=== PATIENT | male | born 1970 | race Caucasian/White ===

== ENCOUNTER 2018-01-17 13:09 | Inpatient (IN) | payer MEDICARE, MEDICAID ==
[~2018-01-17] VITALS: Ht 172.7 cm; Wt 104.5 kg
[~2018-01-17 13:09] MED LIST: ALPR0.25 PO; BENZ1TAB PO; CABE0.5T PO; FENO160T PO; HYDR12.56 PO; LISI-515 PO; LITH300C2 PO; LITH300T3 PO; LORA-650 PO; PANT20TA2 PO; TEST200I13 IM; THIO5CAP PO; VITA10002 PO; VITA100020 IM; VITA100022 PO
[2018-01-17 13:18] VITALS: BP 116/66; PULSE 103; RESP 22; TEMP 98.8; O2SAT 88
[2018-01-17 14:00] VITALS: PULSE 97; RESP 31; O2SAT 92
[2018-01-17 14:14] LABS: AUTOMATED NEUTROPHIL # 13.4 TH/MM3 (1.8-7.7); BASOPHIL # 0.1 TH/MM3 (0-0.2); BASOPHIL % 0.3 % (0.0-2.0); EOSINOPHIL # 0.4 TH/MM3 (0-0.4); EOSINOPHIL % 2.6 % (0.0-4.0); HEMATOCRIT 44.5 % (39.0-51.0); LYMPH % 9.4 % (9.0-44.0); LYMPHOCYTE # 1.6 TH/MM3 (1.0-4.8); MEAN CELL VOLUME 83.1 FL (80.0-100.0); MEAN CORPUSCULAR HGB CONC 33.7 % (32.0-36.0); MEAN PLATELET VOLUME 9.1 FL (7.0-11.0); MONO % 6.7 % (0.0-8.0); MONOCYTE # 1.1 TH/MM3 (0-0.9); PLATELET COUNT 347 TH/MM3 (150-450); RED BLOOD COUNT 5.35 MIL/MM3 (4.50-5.90); RED CELL DISTRIBUTION WIDTH 14.6 % (11.6-17.2); WHITE BLOOD COUNT 16.6 TH/MM3 (4.0-11.0)
[2018-01-17 14:22] LABS: INTERNATIONAL NORMALIZED RATIO 1.1 RATIO; PROTHROMBIN TIME - PATIENT 11.1 SEC (9.8-11.6)
--- NOTE | 2018-01-17 14:28 | RADRPT ---
EXAM DATE/TIME: 01/17/2018 13:52 [place] COMPARISON: CHEST SINGLE AP, March 15, 2016, 12:01. INDICATIONS : Shortness of breath. MEDICAL HISTORY : None. SURGICAL HISTORY : None. ENCOUNTER: Initial ACUITY: 1 day PAIN SCORE: 0/10 LOCATION: Bilateral chest FINDINGS: A single view of the chest demonstrates the lungs to be symmetrically hypoinflated with bibasilar ate lectatic changes. No confluent infiltrate. Accounting for degree of inspiration, heart size is normal . Osseous structures are intact. CONCLUSION: 1. Hypoinflation with bibasilar atelectatic changes. 2. No confluent infiltrate Maico Aldridge MD on January 17, 2018 at 14:24 Board Certified Radiologist. This report was verified electronically.
[2018-01-17 14:32] LABS: ALBUMIN 3.5 GM/DL (3.4-5.0); ALT (GPT) 19 U/L (12-78); AST (GOT) 32 U/L (15-37); BICARBONATE 31.7 MEQ/L (21.0-32.0); BLOOD UREA NITROGEN 33 MG/DL (7-18); CALCIUM 9.6 MG/DL (8.5-10.1); CHLORIDE 96 MEQ/L (98-107); CREATININE 1.84 MG/DL (0.60-1.30); GLOMERULAR FILTRATION RATE 39 ML/MIN (>89); GLUCOSE,RANDOM 99 MG/DL (74-106); MAGNESIUM 2.5 MG/DL (1.5-2.5); PHOSPHORUS 3.4 MG/DL (2.5-4.9); SODIUM (NA) 136 MEQ/L (136-145)
[2018-01-17 14:37] LABS: ALKALINE PHOSPHATASE 59 U/L (45-117); TOTAL BILIRUBIN ADULT 0.5 MG/DL (0.2-1.0); TOTAL PROTEIN 8.1 GM/DL (6.4-8.2); TROPONIN I 0.03 NG/ML (0.02-0.05)
[2018-01-17] MEDS ORDERED: SODIUM CHLOR 0.9% 1000 ML INJ 1,000 ML IV ONE ×2 (14:45→19:15)
[2018-01-17 15:00] VITALS: BP 133/74; PULSE 97; RESP 24; O2SAT 95
[2018-01-17] MEDS ORDERED: cefTRIAXone INJ 2,000 MG in SODIUM CHLORIDE 0.9% INJ 100 ML IV STA (15:05)
[2018-01-17] MEDS ORDERED: AZITHROMYCIN INJ 500 MG in SODIUM CHLOR 0.9% 250 ML INJ 250 ML IV STA (15:05)
[2018-01-17] MEDS ORDERED: RESP: ALBUTEROL 2.5 MG/IPRATROPIUM 0.5 MG NEB (SCH) NEB ONE (15:15)
[2018-01-17 15:27] LABS: BACTERIA, URINE MOD /hpf; BILIRUBIN, URINE NEG (NEG); BLOOD, URINE NEG (NEG); GLUCOSE,URINE NEG (NEG); HYALINE CAST, URINE 5 /lpf (RARE); KETONE, URINE NEG (NEG); MUCUS URINE FEW /lpf (OCC); NITRITE,URINE NEG (NEG); PH, URINE 5.5 (5.0-8.5); URINE COLOR YELLOW (YELLW/STRAW); URINE LEUKOCYTE ESTERASE SMALL (NEG); WHITE BLOOD CELL CLUMPS RARE
[2018-01-17 15:37] LABS: BANDS 3 % (0-6); LYMPHOCYTES 9 % (9-44); METAMYELOCYTES 2 % (0-1); MONOCYTES 6 % (0-8); NEUTROPHIL # MANUAL DIFF 13.4 TH/MM3 (1.8-7.7); POLYS (SEG NEUTROPHILS) 76 % (16-70)
[2018-01-17 15:38] LABS: STOMATOCYTES 1+ (NORMAL)
[2018-01-17 15:39] LABS: TOXIC VACUOLATION PRESENT (NONE SEEN)
[2018-01-17 16:00] VITALS: BP 127/64; PULSE 101; RESP 28; O2SAT 96
--- NOTE | 2018-01-17 17:11 | HHI.HP ---
[facility] Service Family Medicine Primary Care Physician Derian Jordan MD Admission Diagnosis Diagnoses: International Travel<30 Days: No Contact w/Intl Traveler<30days: No Known Affected Area: No History of Present Illness Mr. Garcia is a 47-year-old patient of Dr. Jordan with PMH of schizoaffective disorder, sleep apnea, HTN who presents for evaluation of cough and fever. Upon presentation to the emergency department, patient was noted to have pulse ox of 88% on room air, which improved with supplemental oxygen. Patient is accompanied by mother who supplemented the history. Patient reports hat he has been having a cough productive of mucus which started last Tuesday. This worsened Tuesday night with cough more productive of thick yellow -green sputum; he has since had T of 101F at night associated with breaking into sweating at night, seems cyclical. No foreign travel. He denied any prolonged exposure to healthcare facilities. Patient has not been having associated head/sinus pressure but has had sore throat. He denies any COPD, asthma, or underlying lung disease. Sick contact of dad who recently was sick with similar symptoms. Patient was seen by Dr. Murphy yesterday on 01/16/18 who prescribed Bromfed and Azithromycin. Patient denied any improvement after taking these medications. Was gasping for air upon presentation to ED. Patient also has had bilateral eye discharge for the past 2 days. His mother reports that his eyes are crusted shut in the morning. Patient currently denies chest pain, shortness of breath. (Apolinar Song MD R2) Review of Systems Other + fever or chills No polyuria, polydipsia Denies vision changes, eye pain, + eye discharge BL, denies hearing changes, rhinorrhea, +post-nasal drip, + sore throat + productive cough No chest pain, palpitations, shortness of breath No abdominal pain Denies constipation, + diarrhea, denies nausea, vomiting, + black or brown stools, denies bloody stools; patient refused rectal exam No dysuria, hematuria Denies muscle/joint pain, + weakness, denies headache No rashes, itching (Apolinar Song MD R2) Past Family Social History Past Medical History Manic Depression Schizophrenia History of cutting Obesity Patient has been on disability for several years Sleep apnea on CPAP (evaluated by ENT will get an adenoidectomy next month) Hypo-testosterone PHospitalization: 2006, cut wrists while on abilify. Health maintenance: updated 04/01/15 Colonoscopy at age 48 Flu shot: Aspirin flu season Tdap booster: Declined due to cost Past Surgical History left forearm broken pin placement Reported Medications Reported Meds & Active Scripts Active Fenofibrate 160 Mg Tab 160 Mg PO DAILY Allergy Relief (Loratadine) 10 Mg Tab 10 Mg PO DAILY Pantoprazole (Pantoprazole Sodium) 20 Mg Tab 20 Mg PO qhs Omeprazole 20 mg po qd Lisinopril 20 Mg Tab 20 Mg PO DAILY Alprazolam 0.25 Mg Tab 0.25 Mg PO DAILY PRN Vitamin B-12 ER (Cyanocobalamin) 1,000 Mcg Tab 1,000 Mcg PO MONTHLY Hydrochlorothiazide 12.5 Mg Tab 12.5 Mg PO DAILY Vitamin B-12 ER (Cyanocobalamin) 1,000 Mcg Tab 1,000 Mcg PO DAILY Reported Testosterone Enanthate Inj (Testosterone Enanthate) 200 Mg/Ml Inj 100 Mg IM Q15D Cabergoline 0.5 Mg Tab 0.25 Mg PO 3XWEEK [place] Carbonate 300 Mg Tab 300 Mg PO DAILY Vitamin B-12 Extended Rel (Miscellaneous Medication) 1,000 Mcg Inj 1,000 Mcg IM MONTHLY Thiothixene 5 Mg Cap 10 Mg PO BID Benztropine Mesylate 2 Mg Tab 2 Mg PO TID Eskalith ([place] Carbonate) 300 Mg Cap 600 Mg PO BID (Apolinar Song MD R2) Allergies: Coded Allergies: No Known Allergies (Verified Adverse Reaction, Unknown, 10/24/17) Active Ordered Medications Current Medications Medications (Trade) Dose Ordered Sig/Saloni Route Start Time Stop Time Status Last Admin Sodium Chloride 1,000 ml @ 145 mls/hr Q6H54M IV 01/17/18 17:39 (NS Flush) 2 ml UNSCH PRN IV FLUSH 01/17/18 17:45 (NS Flush) 2 ml BID IV FLUSH 01/17/18 21:00 Ceftriaxone Sodium 2000 mg/ Sodium Chloride 100 ml @ 200 mls/hr Q24H IV 01/18/18 16:00 Azithromycin 500 mg/Sodium Chloride 250 ml @ 250 mls/hr Q24H IV 01/18/18 17:00 (Tylenol) 650 mg Q4H PRN PO 01/17/18 17:45 (Zofran Inj) 4 mg Q6H PRN IV PUSH 01/17/18 17:45 (Robitussin Ac 200-20 Mg/10 ml Liq) 10 ml Q4H PRN PO 01/17/18 17:45 (Lovenox Inj) 40 mg Q24H SQ 01/17/18 20:00 (Xanax) 0.25 mg DAILY PRN PO 01/17/18 18:00 (Cogentin) 2 mg TID PO 01/17/18 19:00 (Vitamin B12) 1,000 mcg DAILY PO 01/18/18 09:00 (Microzide) 12.5 mg DAILY PO 01/17/18 19:00 (Prinivil) 20 mg DAILY PO 01/17/18 19:00 (Claritin) 10 mg DAILY PO 01/17/18 19:00 (Protonix) 20 mg DAILY PO 01/17/18 19:00 (Tricor) 145 mg DAILY PO 01/17/18 19:00 Family History Mom: Depression/Anxiety, GERD Dad: CAD, HTN, Diverticulitis Social History He is a patient at [facility] [place] no tobacco, no alcohol, no drugs (Apolinar Song MD R2) Physical Exam Vital Signs Vital Signs Date Time Temp Pulse Resp B/P (MAP) Pulse Ox O2 Delivery O2 Flow Rate FiO2 01/17/18 16:00 101 28 127/64 (85) 96 Nasal Cannula 2.00 01/17/18 15:00 97 24 133/74 (93) 95 Nasal Cannula 2.00 01/17/18 14:00 97 31 92 Nasal Cannula 2.00 01/17/18 13:38 Nasal Cannula 2.00 01/17/18 13:18 98.8 103 22 116/66 (83) 88 Physical Exam GENERAL: Patient is lying in bed with oxygen via nasal cannula in place, in no acute distress. SKIN: Warm and dry, no rashes appreciated EYES: Some bilateral conjunctival injection R>L; mild discharge from right eye Nose: Bilateral turbinate erythema HENT: Head: Normocephalic. Mouth: Dry mucous membranes. Posterior oropharyngeal erythema. NECK: + Mild cervical lymphadenopathy, but no thyromegaly CARDIOVASCULAR: Regular rate and rhythm without murmurs. RESPIRATORY: Mildly tachypneic. Coughing during exam. Left lung base with some mild rales. Lungs without wheezing. Dullness to percussion at the bases bilaterally. GASTROINTESTINAL: Abdomen soft, nondistended, nontender. Bowel sounds normal. Patient refused rectal exam. MUSCULOSKELETAL: No lower extremity swelling. No calf tenderness bilaterally. NEURO/PSYCH: Awake, alert, and oriented. Cranial nerves grossly normal. Grossly normal motor and sensory function. Laboratory Laboratory Tests Test 01/17/18 13:45 01/17/18 13:55 01/17/18 14:30 White Blood Count 16.6 Red Blood Count 5.35 Hemoglobin 15.0 Hematocrit 44.5 Mean Corpuscular Volume 83.1 Mean Corpuscular Hemoglobin 28.0 Mean Corpuscular Hemoglobin Concent 33.7 Red Cell Distribution Width 14.6 Platelet Count 347 Mean Platelet Volume 9.1 Neutrophils (%) (Auto) 81.0 Lymphocytes (%) (Auto) 9.4 Monocytes (%) (Auto) 6.7 Eosinophils (%) (Auto) 2.6 Basophils (%) (Auto) 0.3 Neutrophils # (Auto) 13.4 Lymphocytes # (Auto) 1.6 Monocytes # (Auto) 1.1 Eosinophils # (Auto) 0.4 Basophils # (Auto) 0.1 CBC Comment AUTO DIFF Differential Total Cells Counted 100 Neutrophils % (Manual) 76 Band Neutrophils % 3 Lymphocytes % 9 Monocytes % 6 Eosinophils % 4 Neutrophils # (Manual) 13.4 Metamyelocytes 2 Differential Comment FINAL DIFF MANUAL Toxic Vacuolation PRESENT Platelet Estimate NORMAL Platelet Morphology Comment NORMAL Stomatocytes 1+ Prothrombin Time 11.1 Prothromb Time International Ratio 1.1 Activated Partial Thromboplast Time 30.8 Blood Urea Nitrogen 33 Creatinine 1.84 Random Glucose 99 Total Protein 8.1 Albumin 3.5 Calcium Level 9.6 Phosphorus Level 3.4 Magnesium Level 2.5 Alkaline Phosphatase 59 Aspartate Amino Transf (AST/SGOT) 32 Alanine Aminotransferase (ALT/SGPT) 19 Total Bilirubin 0.5 Sodium Level 136 Potassium Level 3.5 Chloride Level 96 Carbon Dioxide Level 31.7 Anion Gap 8 Estimat Glomerular Filtration Rate 39 Total Creatine Kinase 517 Creatine Kinase MB 2.4 Creatine Kinase MB % 0.5 Troponin I 0.03 Lactic Acid Level 0.8 Urine Color YELLOW Urine Turbidity CLEAR Urine pH 5.5 Urine Specific [place] 1.012 Urine Protein TRACE Urine Glucose (UA) NEG Urine Ketones NEG Urine Occult Blood NEG Urine Nitrite NEG Urine Bilirubin NEG Urine Urobilinogen LESS THAN 2.0 Urine Leukocyte Esterase SMALL Urine RBC LESS THAN 1 Urine WBC 12 Urine WBC Clumps RARE Urine Bacteria MOD Urine Hyaline Casts 5 Urine Mucus FEW Microscopic Urinalysis Comment CATH-CULTURE IND Date/Time Source Procedure Growth Status 01/17/18 13:54 Blood Peripheral Aerobic Blood Culture Pending Received 01/17/18 13:54 Blood Peripheral Anaerobic Blood Culture Pending Received 01/17/18 13:44 Nasal Aspirate Influenza Types A,B Antigen (HIMANSHU) - Final NEGATIVE FOR FLU A AND B ANTIGEN.... Complete 01/17/18 14:30 Urine Catheterized Urine Urine Culture Pending Received (Apolinar Song MD R2) Result Diagram: 01/17/18 1345 01/17/18 1345 Imaging Last Impressions Chest X-Ray 01/17/18 1333 Signed Impressions: Service Date/Time: Wednesday, January 17, 2018 13:52 - CONCLUSION: 1. Hypoinflation with bibasilar atelectatic changes. 2. No confluent infiltrate Maico Aldridge MD Course In the emergency department, patient had oxygen administration, chest x-ray, blood culture, influenza A/B antigen, UA, troponin, CK-MB, phosphorus, magnesium , lactic acid, APTT, PT/INR, CMP, CBC, EKG, sodium chloride IV bolus, DuoNeb, azithromycin IV, ceftriaxone IV, urine culture, admission order. (Apolinar Song MD R2) Caprini VTE Risk Assessment Caprini VTE Risk Assessment: No/Low Risk (score <= 1) Caprini Risk Assessment Model Point Value = 1 Point Value = 2 Point Value = 3 Point Value = 5 Age 41-60 Minor surgery BMI > 25 kg/m2 Swollen legs Varicose veins or History of unexplained or recurrent spontaneous Oral contraceptives or hormone replacement Sepsis (< 1 month) Serious lung disease, including pneumonia (< 1 month) Abnormal pulmonary function Acute myocardial infarction Congestive heart failure (< 1 month) History of inflammatory bowel disease Medical patient at bed rest Age 61-74 Arthroscopic surgery Major open surgery (> 45 min) Laparoscopic surgery (> 45 min) Malignancy Confined to bed (> 72 hours) Immobilizing plaster cast Central venous access Age >= 75 History of VTE Family history of VTE Factor V Leiden Prothrombin [id number] Lupus anticoagulant Anticardiolipin antibodies Elevated serum homocysteine Heparin-induced thrombocytopenia Other congenital or acquired thrombophilia Stroke (< 1 month) Elective arthroplasty Hip, pelvis, or leg fracture Acute spinal cord injury (< 1 month) Prophylaxis Regimen Total Risk Factor Score Risk Level Prophylaxis Regimen 0-1 Low Early ambulation 2 Moderate Order ONE of the following: *Sequential Compression Device (SCD) *Heparin 5000 units SQ BID 3-4 Higher Order ONE of the following medications: *Heparin 5000 units SQ TID *Enoxaparin/Lovenox 40 mg SQ daily (WT < 150 kg, CrCl > 30 mL/min) *Enoxaparin/Lovenox 30 mg SQ daily (WT < 150 kg, CrCl > 10-29 mL/min) *Enoxaparin/Lovenox 30 mg SQ BID (WT < 150 kg, CrCl > 30 mL/min) AND/OR *Sequential Compression Device (SCD) 5 or more Highest Order ONE of the following medications: *Heparin 5000 units SQ TID (Preferred with Epidurals) *Enoxaparin/Lovenox 40 mg SQ daily (WT < 150 kg, CrCl > 30 mL/min) *Enoxaparin/Lovenox 30 mg SQ daily (WT < 150 kg, CrCl > 10-29 mL/min) *Enoxaparin/Lovenox 30 mg SQ BID (WT < 150 kg, CrCl > 30 mL/min) AND *Sequential Compression Device (SCD) (Apolinar Song MD R2) Assessment and Plan Assessment and Plan Mr. Garcia is a 47-year-old patient of Dr. Jordan with PMH of schizoaffective disorder, sleep apnea, HTN who presents for evaluation of cough and fever. Upon presentation to the emergency department, patient was noted to have pulse ox of 88% on room air, which improved with supplemental oxygen. Code Status Full code (Apolinar Song MD R2) Attending Attestation Patient seen and examined. Discussed with Dr. Jesus. Agree with physical findings , assessment and plan as documented. (Prevatte,Georgi Thoams Jr., MD) Problem List: (1) Hypoxia ICD Codes: R09.02 - Hypoxemia Status: Acute Plan: Given patient's leukocytosis of 16.6 with neutrophilia, poor chest x-ray , left lower lung field rales, will treat for likely bacterial pneumonia superimposed on viral URI. -Placed in observation -Regular basic diet -Supplemental oxygen as needed to maintain oxygen saturation over 92% -Trend CBC -Azithromycin 500 mg IV every 24 hours -Ceftriaxone 2 g IV every 24 hours -Duo nebs as needed -Guaifenesin-codeine 10 mL p.o. every 4 hours as needed for cough -Zofran 4 mg IV every 6 hours as needed for nausea -Follow-up blood cultures, urine culture -Follow-up group A rapid strep screen, influenza A/B antigen, Legionella urinary antigen, pneumococcal urinary antigen, sputum culture and Gram stain -Monitor intake and output -Monitor vital signs -Repeat chest x-ray (2) STEVE (acute kidney injury) ICD Codes: N17.9 - Acute kidney failure, unspecified Status: Acute Plan: Likely secondary to dehydration in the context of recent infection. Patient already received 1 L bolus of normal saline in the emergency department. Still appears dry on exam. -Repeat another liter bolus normal saline -Maintenance IV fluids of normal saline IV at 145 mm's per hour -Trend BMP (3) Conjunctivitis ICD Codes: H10.9 - Unspecified conjunctivitis Status: Acute Plan: -Erythromycin ointment to right eye every 6 hours for 5-7 days (4) Sleep apnea ICD Codes: G47.30 - Sleep apnea Status: Chronic Plan: -CPAP to sleep at night (5) Schizoaffective disorder, unspecified ICD Codes: F25.9 - Schizoaffective disorder, unspecified Status: Chronic Plan: -Continue lithium 300 mg p.o. 3 times daily -Continue thiothixene 10 mg p.o. twice daily -Continue benztropine 2 mg p.o. 3 times daily (6) Hypertension ICD Codes: I10 - Essential (primary) hypertension Status: Chronic Plan: -Continue lisinopril 20 mg p.o. daily -Continue hydrochlorothiazide 12.5 mg p.o. daily (7) GERD Status: Chronic Plan: -Continue pantoprazole 20 mg p.o. daily -Patient also takes omeprazole 20 mg p.o. daily in the morning, but this medication is held (8) Hypertriglyceridemia ICD Codes: E78.1 - Hypertriglyceridemia Status: Chronic Plan: -Continue fenofibrate 130 mg p.o. daily (9) Anxiety ICD Codes: F41.9 - Anxiety Status: Chronic Plan: -Continue Xanax 0.25 mg p.o. daily as needed for anxiety (10) Hyperprolactinemia ICD Codes: E22.1 - Hyperprolactinemia Status: Chronic Plan: -Continue cabergoline 0.5 mg every Tuesday (11) No contraindication to deep vein thrombosis (DVT) prophylaxis ICD Codes: Z78.9 - Other specified health status Status: Acute Plan: -Lovenox 40 mg subcutaneously every 24 hours (12) Nutrition, metabolism, and development symptoms ICD Codes: R63.8 - Other symptoms and signs concerning food and fluid intake Status: Chronic Plan: Fluids: As above Electrolytes: Monitor and replete as necessary Nutrition: Regular basic diet (Apolinar Song MD R2) Apolinar Song MD R2 Jan 17, 2018 17:10 Georgi García Jr., MD Jan 18, 2018 10:51
--- NOTE | 2018-01-17 17:34 | PD ---
HPI Chief Complaint: Respiratory Symptoms Time Seen by Provider: 13:33 Travel History International Travel<30 days: No Contact w/Intl Traveler<30days: No Traveled to known affect area: No History of Present Illness HPI 47-year-old male presents with his parents with note of cough, congestion, fever over the past couple of days. She states he has gotten short of breath. He has history of sleep apnea and it gets worse at night. Mother mainly helps supplement history this patient is a poor historian. This limits history. PFSH Past Medical History Hx Anticoagulant Therapy: No Arthritis: No Asthma: No Autoimmune Disease: No Blood Disorders: No Bipolar Disorder: Yes Anxiety: Yes Depression: Yes Heart Rhythm Problems: No Cancer: No Cardiovascular Problems: Yes (HTN) High Cholesterol: No Chemotherapy: No Chest Pain: No Congestive Heart Failure: No COPD: No Cerebrovascular Accident: No Diabetes: No Diminished Hearing: No GERD: No Glaucoma: No Headaches: No Hepatitis: No Hiatal Hernia: No Hypertension: Yes Kidney Stones: No Musculoskeletal: No Neurologic: No Psychiatric: Yes Reproductive: No Respiratory: No Myocardial Infarction: No Radiation Therapy: No Renal Failure: No Schizophrenia: Yes Seizures: No Sleep Apnea: No Thyroid Disease: No Ulcer: No Tetanus Vaccination: > 5 Years Influenza Vaccination: No Past Surgical History Pacemaker: No Other Surgery: No Social History Alcohol Use: No Tobacco Use: No Substance Use: No Allergies-Medications (Allergen,Severity, Reaction): Coded Allergies: No Known Allergies (Verified Adverse Reaction, Unknown, 10/24/17) Reported Meds & Prescriptions Reported Meds & Active Scripts Active Fenofibrate 160 Mg Tab 160 Mg PO DAILY Allergy Relief (Loratadine) 10 Mg Tab 10 Mg PO DAILY Pantoprazole (Pantoprazole Sodium) 20 Mg Tab 20 Mg PO DAILY Lisinopril 20 Mg Tab 20 Mg PO DAILY Alprazolam 0.25 Mg Tab 0.25 Mg PO DAILY PRN Vitamin B-12 ER (Cyanocobalamin) 1,000 Mcg Tab 1,000 Mcg PO MONTHLY Hydrochlorothiazide 12.5 Mg Tab 12.5 Mg PO DAILY Vitamin B-12 ER (Cyanocobalamin) 1,000 Mcg Tab 1,000 Mcg PO DAILY Reported Testosterone Enanthate Inj (Testosterone Enanthate) 200 Mg/Ml Inj 100 Mg IM Q15D Cabergoline 0.5 Mg Tab 0.25 Mg PO 2XWEEK [place] Carbonate 300 Mg Tab 300 Mg PO DAILY Vitamin B-12 Extended Rel (Miscellaneous Medication) 1,000 Mcg Inj 1,000 Mcg IM MONTHLY Thiothixene 5 Mg Cap 20 Mg PO TID NEB Benztropine Mesylate 2 Mg Tab 2 Mg PO TID Eskalith ([place] Carbonate) 300 Mg Cap 600 Mg PO BID Review of Systems ROS Limitations: Poor Historian Physical Exam Exam Limitations: Poor Historian Narrative GENERAL: 47-year-old male in no apparent distress SKIN: Focused skin assessment warm/dry. HEAD: Atraumatic. Normocephalic. EYES: Pupils equal and round. No scleral icterus. No injection or drainage. ENT: No nasal bleeding or discharge. Mucous membranes pink and moist. Rhinorrhea noted NECK: Trachea midline. No meningeal signs CARDIOVASCULAR: Regular rate and rhythm. No murmur appreciated. RESPIRATORY: No accessory muscle use. Clear to auscultation. Breath sounds equal bilaterally. GASTROINTESTINAL: Abdomen soft, non-tender, nondistended. MUSCULOSKELETAL: No obvious deformities. No clubbing. No cyanosis. NEUROLOGICAL: Awake, moves all extremities. Normal speech. Data Data Last Documented VS Vital Signs Date Time Temp Pulse Resp B/P (MAP) Pulse Ox O2 Delivery O2 Flow Rate FiO2 01/17/18 16:00 101 28 127/64 (85) 96 Nasal Cannula 2.00 01/17/18 13:18 98.8 Orders Orders Electrocardiogram (01/17/18 13:33) Complete Blood Count With Diff (01/17/18 13:33) Comprehensive Metabolic Panel (01/17/18 13:33) Prothrombin Time / Inr (Pt) (01/17/18 13:33) Act Partial Throm Time (Ptt) (01/17/18 13:33) Lactic Acid Sepsis Protocol (01/17/18 13:33) Magnesium (Mg) (01/17/18 13:33) Phosphorus (Po4) (01/17/18 13:33) Ckmb (Isoenzyme) Profile (01/17/18 13:33) Troponin I (01/17/18 13:33) Urinalysis - C+S If Indicated (01/17/18 13:33) Influenzae A/B Antigen (01/17/18 13:33) Blood Culture (01/17/18 13:33) Chest, Single Ap (01/17/18 13:33) Ecg Monitoring (01/17/18 13:33) Iv Access Insert/Monitor (01/17/18 13:33) Oximetry (01/17/18 13:33) Oxygen Administration (01/17/18 13:33) CKMB (01/17/18 13:45) CKMB% (01/17/18 13:45) Sodium Chlor 0.9% 1000 Ml Inj (Ns 1000 M (01/17/18 14:45) Ceftriaxone Inj (Rocephin Inj) (01/17/18 15:05) Azithromycin Inj (Zithromax Inj) (01/17/18 15:05) Albuterol-Ipratropium Neb (Duoneb Neb) (01/17/18 15:15) Urine Culture (01/17/18 14:30) Admit Order (Ed Use Only) (01/17/18 17:09) Labs Laboratory Tests Test 01/17/18 13:45 01/17/18 13:55 01/17/18 14:30 White Blood Count 16.6 TH/MM3 Red Blood Count 5.35 MIL/MM3 Hemoglobin 15.0 GM/DL Hematocrit 44.5 % Mean Corpuscular Volume 83.1 FL Mean Corpuscular Hemoglobin 28.0 PG Mean Corpuscular Hemoglobin Concent 33.7 % Red Cell Distribution Width 14.6 % Platelet Count 347 TH/MM3 Mean Platelet Volume 9.1 FL Neutrophils (%) (Auto) 81.0 % Lymphocytes (%) (Auto) 9.4 % Monocytes (%) (Auto) 6.7 % Eosinophils (%) (Auto) 2.6 % Basophils (%) (Auto) 0.3 % Neutrophils # (Auto) 13.4 TH/MM3 Lymphocytes # (Auto) 1.6 TH/MM3 Monocytes # (Auto) 1.1 TH/MM3 Eosinophils # (Auto) 0.4 TH/MM3 Basophils # (Auto) 0.1 TH/MM3 CBC Comment AUTO DIFF Differential Total Cells Counted 100 Neutrophils % (Manual) 76 % Band Neutrophils % 3 % Lymphocytes % 9 % Monocytes % 6 % Eosinophils % 4 % Neutrophils # (Manual) 13.4 TH/MM3 Metamyelocytes 2 % Differential Comment FINAL DIFF MANUAL Toxic Vacuolation PRESENT Platelet Estimate NORMAL Platelet Morphology Comment NORMAL Stomatocytes 1+ Prothrombin Time 11.1 SEC Prothromb Time International Ratio 1.1 RATIO Activated Partial Thromboplast Time 30.8 SEC Blood Urea Nitrogen 33 MG/DL Creatinine 1.84 MG/DL Random Glucose 99 MG/DL Total Protein 8.1 GM/DL Albumin 3.5 GM/DL Calcium Level 9.6 MG/DL Phosphorus Level 3.4 MG/DL Magnesium Level 2.5 MG/DL Alkaline Phosphatase 59 U/L Aspartate Amino Transf (AST/SGOT) 32 U/L Alanine Aminotransferase (ALT/SGPT) 19 U/L Total Bilirubin 0.5 MG/DL Sodium Level 136 MEQ/L Potassium Level 3.5 MEQ/L Chloride Level 96 MEQ/L Carbon Dioxide Level 31.7 MEQ/L Anion Gap 8 MEQ/L Estimat Glomerular Filtration Rate 39 ML/MIN Total Creatine Kinase 517 U/L Creatine Kinase MB 2.4 NG/ML Creatine Kinase MB % 0.5 % Troponin I 0.03 NG/ML Lactic Acid Level 0.8 mmol/L Urine Color YELLOW Urine Turbidity CLEAR Urine pH 5.5 Urine Specific [place] 1.012 Urine Protein TRACE mg/dL Urine Glucose (UA) NEG mg/dL Urine Ketones NEG mg/dL Urine Occult Blood NEG Urine Nitrite NEG Urine Bilirubin NEG Urine Urobilinogen LESS THAN 2.0 MG/DL Urine Leukocyte Esterase SMALL Urine RBC LESS THAN 1 /hpf Urine WBC 12 /hpf Urine WBC Clumps RARE Urine Bacteria MOD /hpf Urine Hyaline Casts 5 /lpf Urine Mucus FEW /lpf Microscopic Urinalysis Comment CATH-CULTURE IND MDM Medical Decision Making Medical Screen Exam Complete: Yes Emergency Medical Condition: Yes Medical Record Reviewed: Yes (pmh confirmed) Interpretation(s) CBC & BMP Diagram 01/17/18 13:45 Total Protein 8.1, Albumin 3.5, Calcium Level 9.6, Phosphorus Level 3.4, Magnesium Level 2.5, Alkaline Phosphatase 59, Aspartate Amino Transf (AST/SGOT) 32, Alanine Aminotransferase (ALT/SGPT) 19, Total Bilirubin 0.5 Last 24 hours Impressions Chest X-Ray 01/17/18 1333 Signed Impressions: Service Date/Time: Wednesday, January 17, 2018 13:52 - CONCLUSION: 1. Hypoinflation with bibasilar atelectatic changes. 2. No confluent infiltrate Maico Aldridge MD Differential Diagnosis Pneumonia, flu, UTI, sepsis Narrative Course will check blood work, chest x-ray, influenza and reevaluate patient has leukocytosis and hypoxia. Chest x-ray with possible atelectasis but given symptoms we will treat for pneumonia. family updated and agreed to plan Physician Communication Physician Communication resident team agrees to admit Diagnosis Primary Impression: Upper respiratory infection Qualified Codes: J06.9 - Acute upper respiratory infection, unspecified Additional Impressions: Hypoxia Leukocytosis Qualified Codes: D72.829 - Elevated white blood cell count, unspecified Admitting Information Admitting Physician Requests: Nelda Perez MD Jan 17, 2018 17:34
[2018-01-17] MEDS ORDERED: ONDANSETRON HCL 4 MG/2 ML VIAL IV PUSH PRN (17:45)
[2018-01-17] MEDS ORDERED: SODIUM CHLORIDE 0.9% FLUSH 10 ML FLUSH IV FLUSH PRN (17:45)
[2018-01-17] MEDS ORDERED: THIO10CA PO (18:02)
[2018-01-17] MEDS ORDERED: LITH300T3 PO (18:02)
[2018-01-17] MEDS ORDERED: CABE0.5T PO (18:02)
[2018-01-17] MEDS ORDERED: RESP: ALBUTEROL 2.5 MG/IPRATROPIUM 0.5 MG NEB (PRN) NEB (19:30)
[2018-01-17] MEDS: PANTOPRAZOLE SOD 20 MG DELAYED RELEASE TAB PO SCH (19:36)
[2018-01-17] MEDS: FENOFIBRATE 145 MG TAB PO SCH (19:36)
[2018-01-17] MEDS: HYDROCHLOROTHIAZIDE 12.5 MG CAP PO SCH (19:36)
[2018-01-17] MEDS: LORATADINE 10 MG TAB PO SCH (19:36)
[2018-01-17] MEDS: SODIUM CHLORIDE 0.9% FLUSH 10 ML FLUSH IV FLUSH SCH (19:37)
[2018-01-17] MEDS: ENOXAPARIN SODIUM 40 MG/0.4 ML SYRINGE SQ SCH (19:37)
[2018-01-17] MEDS: LISINOPRIL 20 MG TAB PO SCH (19:37)
[2018-01-17] MEDS: SODIUM CHLOR 0.9% 1000 ML INJ 1,000 ML IV SCH (19:38)
[2018-01-17] MEDS: BENZTROPINE MESYLATE 1 MG TAB PO SCH (19:40)
[2018-01-17 21:34] VITALS: BP 144/70; PULSE 156; RESP 16; TEMP 98.5; O2SAT 90
--- NOTE | 2018-01-17 21:40 | RADRPT ---
EXAM DATE/TIME: 01/17/2018 18:22 [facility] COMPARISON: CHEST SINGLE AP, January 17, 2018, 13:52. INDICATIONS : Pneumonia. MEDICAL HISTORY : sleep apnea. SURGICAL HISTORY : None. ENCOUNTER: Subsequent ACUITY: 1 day PAIN SCORE: 0/10 LOCATION: Bilateral chest FINDINGS: Trace atelectasis now seen in the bases. Potential early infiltrate on the left. No pneumothorax seen . Normal, stable heart size. CONCLUSION: Trace bibasilar atelectasis. Rhys Easley MD on January 17, 2018 at 21:37 Board Certified Radiologist. This report was verified electronically.
[2018-01-18] VITALS (7 sets, daily range): BP systolic 123–145; BP diastolic 68–77; PULSE 87–96; RESP 16–20; TEMP 96.2–98.9; O2SAT 83–96
[2018-01-18] MEDS: SODIUM CHLOR 0.9% 1000 ML INJ 1,000 ML IV SCH ×4 (00:33→20:55)
[2018-01-18] MEDS: ERYTHROMYCIN 0.5% OPTH OINT 3.5 GM TUBO RIGHT EYE SCH ×3 (06:07→18:11)
[2018-01-18 06:37] LABS: BICARBONATE 26.2 MEQ/L (21.0-32.0); CALCIUM 9.1 MG/DL (8.5-10.1); CREATININE 1.39 MG/DL (0.60-1.30)
--- NOTE | 2018-01-18 09:39 | EKG ---
Date Performed: 01/17/2018 Time Performed: 13:42:58 PTAGE: 47 years EKG: Sinus rhythm MODERATE INTRAVENTRICULAR CONDUCTION DELAY BORDERLINE ECG PREVIOUS TRACING : 03/15/2016 11.55 DOCTOR: Luis Antonio Palacios Interpretating Date/Time 01/18/2018 09:37:25
[2018-01-18] MEDS: BENZTROPINE MESYLATE 1 MG TAB PO SCH ×3 (09:53→18:11)
[2018-01-18] MEDS: FENOFIBRATE 145 MG TAB PO SCH (09:54)
[2018-01-18] MEDS: HYDROCHLOROTHIAZIDE 12.5 MG CAP PO SCH (09:54)
[2018-01-18] MEDS: CYANOCOBALAMIN 1,000 MCG TAB PO SCH (09:54)
[2018-01-18] MEDS: LORATADINE 10 MG TAB PO SCH (09:54)
[2018-01-18] MEDS: PANTOPRAZOLE SOD 20 MG DELAYED RELEASE TAB PO SCH ×2 (09:54→20:55)
[2018-01-18] MEDS: LISINOPRIL 20 MG TAB PO SCH (09:54)
[2018-01-18] MEDS: SODIUM CHLORIDE 0.9% FLUSH 10 ML FLUSH IV FLUSH SCH ×2 (09:55→20:55)
[2018-01-18] MEDS ORDERED: THIOTHIXENE 10 MG CAP PO SCH ×2 (10:30→11:00)
--- NOTE | 2018-01-18 10:40 | HHI.FPPN ---
Subjective Remarks Patient was on oxygen until 1938 hrs. Afebrile overnight. Patient was not on oxygen overnight and satting 90-95%. Patient refused CPAP overnight. Patient states that he does not like oxygen, does not like the feeling in his nose. On interview today, patient was noted to be satting low 80s while talking or laying down. Continues to cough thick, green sputum. Endorses improvement in symptoms by 50% since admission. Parents come to bedside later. Patient is concerned that he has a tongue infection, request that his tongue be examined. Does not endorse any other issues. (Summer Jesus MD R1) Objective Vitals Vital Signs Date Time Temp Pulse Resp B/P (MAP) Pulse Ox O2 Delivery O2 Flow Rate FiO2 01/18/18 08:12 97.6 94 16 135/71 (92) 90 01/18/18 05:31 98.9 95 16 143/72 (95) 95 01/18/18 00:29 97.8 96 16 130/69 (89) 92 01/17/18 21:34 98.5 156 16 144/70 (94) 90 01/17/18 19:38 Nasal Cannula 2.00 01/17/18 16:00 101 28 127/64 (85) 96 Nasal Cannula 2.00 01/17/18 15:00 97 24 133/74 (93) 95 Nasal Cannula 2.00 01/17/18 14:00 97 31 92 Nasal Cannula 2.00 01/17/18 13:38 Nasal Cannula 2.00 01/17/18 13:37 Room Air 01/17/18 13:18 98.8 103 22 116/66 (83) 88 I/O 01/17/18 01/17/18 01/17/18 01/18/18 01/18/18 01/18/18 07:00 15:00 23:00 07:00 15:00 23:00 Intake Total 1350 ml 240 ml Output Total 250 ml Balance -250 ml 1350 ml 240 ml Intake Oral 240 ml IV Total 1350 ml Output Urine Total 250 ml # Voids 1 4 1 (Summer Jesus MD R1) Result Diagram: 01/17/18 1345 01/18/18 0513 Objective Remarks O. CONSTITUTIONAL/GEN: Overweight male who briefly answers questions. Coughing during exam. EYES: EOMI. slight redness of the right conjunctiva. Minimal bilateral crusting noted. ENT: Mouth and pharynx normal. LUNGS: Respiratory effort is normal. Lung sounds are slightly coarse. CARDIOVASCULAR: RR without murmur or gallop. No significant edema. GI/ABD: soft without masses, without organomegaly. NEURO: No focal deficits. Gait is normal SKIN: color normal, no rashes noted. HEME/LYMPH: no bruising, petechia. MUSC: Extremities are normal in appearance. PSYCH/MENTAL STATUS: Alert, answers questions appropriately. (Summer Jesus MD R1) A/P Assessment and Plan Mr. Garcia is a 47-year-old patient of Dr. Jordan with PMH of schizoaffective disorder, sleep apnea, HTN who is admitted for pneumonia and STEVE. Upon presentation to the emergency department, patient was noted to have pulse ox of 88% on room air, which improved with supplemental oxygen. Placed on antibiotics , IV fluids, breathing treatments every 6 hours, and supplemental oxygen. Patient is not a reliable historian; however, parents are. Discharge Planning Plan discharge with no longer requiring oxygen and STEVE has resolved. (Summer Jesus MD R1) Attending Attestation Patient seen and examined. Discussed with Dr. Jesus. Agree with assessment and plan as documented. (Prevatte,Georgi Thomas Jr., MD) Problem List: (1) Hypoxia ICD Codes: R09.02 - Hypoxemia Status: Acute Plan: On admission: leukocytosis of 16.6 with neutrophilia, poor chest x-ray, left lower lung field rales, will treat for likely bacterial pneumonia superimposed on viral URI Placed in observation CXR shows atelactasis, no infiltrates Improved today by 50% -Supplemental oxygen as needed to maintain oxygen saturation over 92% -s/p Azithromycin 500 mg IV x1 in the ED. PO Azithromycin 250 mg daily for 4 more days. -Ceftriaxone 2 g IV every 24 hours Day #2 -Duonebs Q6H scheduled while awake -Guaifenesin-codeine 10 mL p.o. every 4 hours as needed for cough -Flu negative, gram stain of sputum pending (2) STEVE (acute kidney injury) ICD Codes: N17.9 - Acute kidney failure, unspecified Status: Acute Plan: Likely secondary to dehydration in the context of recent infection. Patient already received 1 L bolus of normal saline in the emergency department. Still appears dry on exam. Improved BUN 25, creatinine 1.39. Baseline BUN and creatinine is within normal limits. -Maintenance IV fluids of normal saline IV at 145 mm's per hour -Trend BMP (3) Conjunctivitis ICD Codes: H10.9 - Unspecified conjunctivitis Status: Acute Plan: Appears to be improved. - Continue erythromycin ointment to right eye every 6 hours for 5-7 days (4) Sleep apnea ICD Codes: G47.30 - Sleep apnea Status: Chronic Plan: -CPAP to sleep at night (5) Schizoaffective disorder, unspecified ICD Codes: F25.9 - Schizoaffective disorder, unspecified Status: Chronic Plan: -Continue lithium 300 mg p.o. 3 times daily -Continue thiothixene 20 mg 3 times a day -Continue benztropine 2 mg p.o. 3 times daily (6) Hypertension ICD Codes: I10 - Essential (primary) hypertension Status: Chronic Plan: -Continue lisinopril 20 mg p.o. daily -Continue hydrochlorothiazide 12.5 mg p.o. daily (7) GERD Status: Chronic Plan: -Continue pantoprazole 20 mg p.o. daily -Patient also takes omeprazole 20 mg p.o. daily in the morning, but this medication is held (8) Hypertriglyceridemia ICD Codes: E78.1 - Hypertriglyceridemia Status: Chronic Plan: -Continue fenofibrate 130 mg p.o. daily (9) Anxiety ICD Codes: F41.9 - Anxiety Status: Chronic Plan: -Continue Xanax 0.25 mg p.o. daily as needed for anxiety (10) Hyperprolactinemia ICD Codes: E22.1 - Hyperprolactinemia Status: Chronic Plan: -Continue cabergoline 0.5 mg every Tuesday (11) No contraindication to deep vein thrombosis (DVT) prophylaxis ICD Codes: Z78.9 - Other specified health status Status: Acute Plan: -Lovenox 40 mg subcutaneously every 24 hours (12) Nutrition, metabolism, and development symptoms ICD Codes: R63.8 - Other symptoms and signs concerning food and fluid intake Status: Chronic Plan: Fluids: As above Electrolytes: Monitor and replete as necessary Nutrition: Regular basic diet (Summer Jesus MD R1) Summer Jesus MD R1 Jan 18, 2018 10:40 Georgi García Jr. MD Jan 18, 2018 13:25
[2018-01-18] MEDS: RESP: ALBUTEROL 2.5 MG/IPRATROPIUM 0.5 MG NEB (SCH) NEB ×2 (10:45→20:04)
[2018-01-18 11:01] LABS: AUTOMATED NEUTROPHIL # 12.9 TH/MM3 (1.8-7.7); BASOPHIL # 0.1 TH/MM3 (0-0.2); BASOPHIL % 0.5 % (0.0-2.0); EOSINOPHIL # 0.5 TH/MM3 (0-0.4); EOSINOPHIL % 2.9 % (0.0-4.0); HEMATOCRIT 45.2 % (39.0-51.0); HEMOGLOBIN 14.3 GM/DL (13.0-17.0); LYMPH % 9.1 % (9.0-44.0); LYMPHOCYTE # 1.5 TH/MM3 (1.0-4.8); MEAN CELL VOLUME 83.7 FL (80.0-100.0); MEAN CORPUSCULAR HEMOGLOBIN 26.5 PG (27.0-34.0); MEAN CORPUSCULAR HGB CONC 31.6 % (32.0-36.0); MEAN PLATELET VOLUME 9.1 FL (7.0-11.0); MONO % 6.5 % (0.0-8.0); PLATELET COUNT 396 TH/MM3 (150-450); RED CELL DISTRIBUTION WIDTH 14.6 % (11.6-17.2); WHITE BLOOD COUNT 15.9 TH/MM3 (4.0-11.0)
[2018-01-18 11:40] LABS: BANDS 10 % (0-6); MYELOCYTES 3 % (0-0); POLYS (SEG NEUTROPHILS) 70 % (16-70)
[2018-01-18 11:42] LABS: BASOPHILS 1 % (0-2); METAMYELOCYTES 1 % (0-1); MONOCYTES 5 % (0-8); NEUTROPHIL # MANUAL DIFF 13.4 TH/MM3 (1.8-7.7)
[2018-01-18 11:43] LABS: LYMPHOCYTES 7 % (9-44); STOMATOCYTES 1+ (NORMAL)
[2018-01-18] MEDS ORDERED: LITHIUM CARBONATE 300 MG TAB PO SCH (13:00)
[2018-01-18] MEDS: THIOTHIXENE 10 MG CAP PO SCH ×2 (13:31→18:11)
[2018-01-18] MEDS: LITHIUM CARBONATE 300 MG TAB PO SCH ×2 (13:31→18:11)
[2018-01-18] MEDS ORDERED: AZITHROMYCIN INJ 500 MG in SODIUM CHLOR 0.9% 250 ML INJ 250 ML IV SCH (17:00)
[2018-01-18] MEDS: AZITHROMYCIN 250 MG TAB PO SCH (18:11)
[2018-01-18] MEDS: cefTRIAXone INJ 2,000 MG in SODIUM CHLORIDE 0.9% INJ 100 ML IV SCH (18:12)
[2018-01-18] MEDS: ENOXAPARIN SODIUM 40 MG/0.4 ML SYRINGE SQ SCH (20:55)
[2018-01-18] MEDS: guaiFENesin/CODEINE SYRUP 200 MG/20 MG/10 ML CUP PO PRN (21:28)
[2018-01-19] VITALS (9 sets, daily range): BP systolic 114–152; BP diastolic 61–83; PULSE 82–90; RESP 16–20; TEMP 96.8–98.8; O2SAT 83–97
[2018-01-19] MEDS: SODIUM CHLOR 0.9% 1000 ML INJ 1,000 ML IV SCH (04:09)
[2018-01-19] MEDS: ERYTHROMYCIN 0.5% OPTH OINT 3.5 GM TUBO RIGHT EYE SCH ×4 (05:23→17:47)
--- NOTE | 2018-01-19 07:11 | HHI.FPPN ---
Subjective Remarks Afebrile overnight. Patient was on O2 most of the night (3 L NC, satting 92-93%) , although at a couple of points, it appears patient may have removed oxygen ( at those points, O2 satted at 83-84%). Patient endorses no problems but Mom at bedside states that it sounds like he is coughing up fluid from his lungs. Patient states he was not on fluids overnight, and he is unhooked from fluids in the room. These were then resumed in the room. No problems with appetite or urination. Patient is continuing to cough. States he has water in his lungs. Mom reports today that patient is chronically hypoxic at home - has been like this for the last 3 years. Parents have a pulse ox at home. States he dips to high 70s and that this happens frequently but not daily. He does not see a advertising sales agent and does not have underlying lung disease; has not undergone a pulmonary work-up or function test. Thinks he needs oxygen at home. Is not comfortable taking him home, even with oxygen. Objective Vitals Vital Signs Date Time Temp Pulse Resp B/P (MAP) Pulse Ox O2 Delivery O2 Flow Rate FiO2 01/19/18 02:16 98.0 88 16 152/80 (104) 83 01/18/18 21:20 98.7 95 16 123/68 (86) 84 01/18/18 20:08 92 Nasal Cannula 3.00 01/18/18 16:01 96.2 87 16 139/77 (97) 83 01/18/18 11:14 97.9 92 20 145/75 (98) 96 01/18/18 08:12 97.6 94 16 135/71 (92) 90 I/O 01/18/18 01/18/18 01/18/18 01/19/18 01/19/18 01/19/18 07:00 15:00 23:00 07:00 15:00 23:00 Intake Total 240 ml 120 ml 120 ml Balance 240 ml 120 ml 120 ml Intake Oral 240 ml 120 ml 120 ml # Voids 1 2 2 Result Diagram: 01/18/18 0952 01/18/18 0513 Objective Remarks O. CONSTITUTIONAL/GEN: Overweight male who briefly answers questions, has a breathy voice. EYES: EOMI. slight redness of the right conjunctiva. Minimal bilateral crusting noted. ENT: Mouth and pharynx normal. Nasal congestion is audible. LUNGS: Respiratory effort is normal. Lung sounds clear. CARDIOVASCULAR: RR without murmur or gallop. No significant edema. GI/ABD: soft without masses, without organomegaly. NEURO: No focal deficits. Gait is normal SKIN: color normal, no rashes noted. HEME/LYMPH: no bruising, petechia. MUSC: Extremities are normal in appearance. PSYCH/MENTAL STATUS: Alert, answers questions appropriately. A/P Assessment and Plan Mr. Garcia is a 47-year-old patient of Dr. Jordan with PMH of schizoaffective disorder, sleep apnea, HTN who is admitted for pneumonia and STEVE. Upon presentation to the emergency department, patient was noted to have pulse ox of 88% on room air, which improved with supplemental oxygen. Placed on antibiotics , IV fluids, breathing treatments every 6 hours, and supplemental oxygen. Patient is not a reliable historian; however, Mom is usually at bedside and able to adequately answer questions. Discharge Planning Plan to discharge with home O2 and follow-up w/ PCP. Recommend referral to pulmonology. Discharge possible tomorrow, as patient likely is chronically hypoxic due to obesity hypoventilation syndrome. Problem List: (1) Hypoxia ICD Codes: R09.02 - Hypoxemia Status: Acute Plan: On admission: leukocytosis of 16.6 with neutrophilia, poor chest x-ray, left lower lung field rales, will treat for likely bacterial pneumonia superimposed on viral URI CXR shows atelactasis, no infiltrates WBC with slight left shift, stable from yesterday Likely secondary to obesity hypoventilation syndrome exacerbated by URI v community acquired pneumonia Improving -Supplemental oxygen to maintain oxygen saturation over 92% -s/p Azithromycin 500 mg IV x1 in the ED. PO Azithromycin 250 mg daily (day #3 today) for 4 days total. -Ceftriaxone 2 g IV every 24 hours Day #3 -Duonebs Q6H scheduled while awake -Guaifenesin-codeine 10 mL p.o. every 4 hours as needed for cough -Flu negative, gram stain of sputum grows normal niki - Keep head of bed elevated to 30 degrees for optimal airway breathing - PFTs to evaluate for underlying lung disease - Order ABG to evaluate for chronic changes (2) STEVE (acute kidney injury) ICD Codes: N17.9 - Acute kidney failure, unspecified Status: Acute Plan: Likely secondary to dehydration in the context of recent infection. Patient already received 1 L bolus of normal saline in the emergency department. Still appears dry on exam. Resolved - IVF discontinued today (3) Conjunctivitis ICD Codes: H10.9 - Unspecified conjunctivitis Status: Acute Plan: Appears to be improved. - Continue erythromycin ointment (day #2) to right eye every 6 hours for 5-7 days (4) Sleep apnea ICD Codes: G47.30 - Sleep apnea Status: Chronic Plan: -CPAP to sleep at night (5) Schizoaffective disorder, unspecified ICD Codes: F25.9 - Schizoaffective disorder, unspecified Status: Chronic Plan: -Continue lithium 300 mg p.o. 3 times daily -Continue thiothixene 20 mg 3 times a day -Continue benztropine 2 mg p.o. 3 times daily (6) Hypertension ICD Codes: I10 - Essential (primary) hypertension Status: Chronic Plan: -Continue lisinopril 20 mg p.o. daily -Continue hydrochlorothiazide 12.5 mg p.o. daily (7) GERD Status: Chronic Plan: -Continue pantoprazole 20 mg p.o. daily -Patient also takes omeprazole 20 mg p.o. daily in the morning, but this medication is held (8) Hypertriglyceridemia ICD Codes: E78.1 - Hypertriglyceridemia Status: Chronic Plan: -Continue fenofibrate 130 mg p.o. daily (9) Anxiety ICD Codes: F41.9 - Anxiety Status: Chronic Plan: -Continue Xanax 0.25 mg p.o. daily as needed for anxiety (10) Hyperprolactinemia ICD Codes: E22.1 - Hyperprolactinemia Status: Chronic Plan: -Continue cabergoline 0.5 mg every Tuesday (11) No contraindication to deep vein thrombosis (DVT) prophylaxis ICD Codes: Z78.9 - Other specified health status Status: Acute Plan: -Lovenox 40 mg subcutaneously every 24 hours (12) Nutrition, metabolism, and development symptoms ICD Codes: R63.8 - Other symptoms and signs concerning food and fluid intake Status: Chronic Plan: Fluids: PO Electrolytes: Monitor and replete as necessary Nutrition: Regular basic diet Summer Jesus MD R1 Jan 19, 2018 07:11
[2018-01-19 07:53] LABS: AUTOMATED NEUTROPHIL # 12.4 TH/MM3 (1.8-7.7); BASOPHIL # 0.1 TH/MM3 (0-0.2); BASOPHIL % 0.5 % (0.0-2.0); EOSINOPHIL # 0.5 TH/MM3 (0-0.4); EOSINOPHIL % 3.1 % (0.0-4.0); HEMATOCRIT 45.7 % (39.0-51.0); HEMOGLOBIN 14.6 GM/DL (13.0-17.0); LYMPHOCYTE # 1.7 TH/MM3 (1.0-4.8); MEAN CELL VOLUME 83.9 FL (80.0-100.0); MEAN CORPUSCULAR HEMOGLOBIN 26.8 PG (27.0-34.0); MEAN PLATELET VOLUME 8.8 FL (7.0-11.0); MONO % 7.1 % (0.0-8.0); MONOCYTE # 1.1 TH/MM3 (0-0.9); NEUT % 78.3 % (16.0-70.0); PLATELET COUNT 356 TH/MM3 (150-450); RED BLOOD COUNT 5.44 MIL/MM3 (4.50-5.90); RED CELL DISTRIBUTION WIDTH 14.8 % (11.6-17.2); WHITE BLOOD COUNT 15.8 TH/MM3 (4.0-11.0)
[2018-01-19 08:25] LABS: CALCIUM 9.8 MG/DL (8.5-10.1); CREATININE 1.15 MG/DL (0.60-1.30)
[2018-01-19] MEDS: RESP: ALBUTEROL 2.5 MG/IPRATROPIUM 0.5 MG NEB (SCH) NEB ×3 (08:25→19:36)
[2018-01-19 08:45] LABS: BANDS 7 % (0-6); LYMPHOCYTES 14 % (9-44); METAMYELOCYTES 5 % (0-1); MONOCYTES 6 % (0-8); MYELOCYTES 1 % (0-0); POLYS (SEG NEUTROPHILS) 63 % (16-70)
[2018-01-19] MEDS: FENOFIBRATE 145 MG TAB PO SCH (08:53)
[2018-01-19] MEDS: SODIUM CHLORIDE 0.9% FLUSH 10 ML FLUSH IV FLUSH SCH ×2 (08:53→20:10)
[2018-01-19] MEDS: BENZTROPINE MESYLATE 1 MG TAB PO SCH ×3 (08:53→17:47)
[2018-01-19] MEDS: PANTOPRAZOLE SOD 20 MG DELAYED RELEASE TAB PO SCH ×2 (08:53→20:10)
[2018-01-19] MEDS: HYDROCHLOROTHIAZIDE 12.5 MG CAP PO SCH (08:54)
[2018-01-19] MEDS: LORATADINE 10 MG TAB PO SCH (08:54)
[2018-01-19] MEDS: THIOTHIXENE 10 MG CAP PO SCH ×3 (08:54→17:47)
[2018-01-19] MEDS: LISINOPRIL 20 MG TAB PO SCH (08:54)
[2018-01-19] MEDS: LITHIUM CARBONATE 300 MG TAB PO SCH ×3 (08:54→17:47)
[2018-01-19] MEDS: CYANOCOBALAMIN 1,000 MCG TAB PO SCH (08:55)
[2018-01-19] MEDS: CABERGOLINE 0.5 MG PO SCH (09:02)
[2018-01-19] MEDS: AZITHROMYCIN 250 MG TAB PO SCH (14:36)
[2018-01-19] MEDS: ACETAMINOPHEN 325 MG TAB PO PRN (14:36)
[2018-01-19] MEDS: ALPRAZolam 0.25 MG TAB PO PRN (14:36)
[2018-01-19] MEDS: guaiFENesin/CODEINE SYRUP 200 MG/20 MG/10 ML CUP PO PRN (14:36)
[2018-01-19] MEDS: cefTRIAXone INJ 2,000 MG in SODIUM CHLORIDE 0.9% INJ 100 ML IV SCH (17:47)
[2018-01-19] MEDS: ENOXAPARIN SODIUM 40 MG/0.4 ML SYRINGE SQ SCH (20:10)
[2018-01-20] VITALS (7 sets, daily range): BP systolic 126–160; BP diastolic 71–98; PULSE 72–100; RESP 18–22; TEMP 97.8–98.2; O2SAT 88–94
[2018-01-20] MEDS: ERYTHROMYCIN 0.5% OPTH OINT 3.5 GM TUBO RIGHT EYE SCH ×4 (00:09→18:00)
[2018-01-20] MEDS: RESP: ALBUTEROL 2.5 MG/IPRATROPIUM 0.5 MG NEB (SCH) NEB ×3 (07:46→19:28)
[2018-01-20] MEDS ORDERED: OXYGENTANK NAS.CANULA (08:18)
--- NOTE | 2018-01-20 08:21 | HHI.DCPOC ---
Discharge Care Plan Diagnosis: (1) Hypoxia (2) STEVE (acute kidney injury) (3) Conjunctivitis Goals to Promote Your Health * To prevent worsening of your condition and complications * To maintain your health at the optimal level Directions to Meet Your Goals Take your medications as prescribed Follow your dietary instruction Follow activity as directed Keep your appointments as scheduled Take your immunizations and boosters as scheduled If your symptoms worsen call your PCP, if no PCP go to Urgent Care Center or Emergency Room Smoking is Dangerous to Your Health. Avoid second hand smoke Call the 24-hour hour crisis hotline for domestic abuse at Summer Jesus MD R1 Jan 20, 2018 08:21
[2018-01-20] MEDS: BENZTROPINE MESYLATE 1 MG TAB PO SCH ×3 (08:24→18:00)
[2018-01-20] MEDS: THIOTHIXENE 10 MG CAP PO SCH ×3 (08:25→18:07)
[2018-01-20] MEDS: HYDROCHLOROTHIAZIDE 12.5 MG CAP PO SCH (08:25)
[2018-01-20] MEDS: FENOFIBRATE 145 MG TAB PO SCH (08:25)
[2018-01-20] MEDS: PANTOPRAZOLE SOD 20 MG DELAYED RELEASE TAB PO SCH (08:25)
[2018-01-20] MEDS: LORATADINE 10 MG TAB PO SCH (08:25)
[2018-01-20] MEDS: LISINOPRIL 20 MG TAB PO SCH (08:25)
[2018-01-20] MEDS: LITHIUM CARBONATE 300 MG TAB PO SCH ×3 (08:25→18:00)
--- NOTE | 2018-01-20 08:25 | HHI.FPPN ---
Subjective Remarks Mom takes patient is doing better today. Was on O2 3L NC overnight, satting 94- 97. No problems. Ok with going home. (Summer Jesus MD R1) Objective Vitals Vital Signs Date Time Temp Pulse Resp B/P (MAP) Pulse Ox O2 Delivery O2 Flow Rate FiO2 01/20/18 07:47 94 Nasal Cannula 3.00 01/20/18 07:40 3.00 01/20/18 07:38 97.9 93 20 152/98 (116) 88 01/20/18 04:16 97.8 99 20 126/76 (93) 94 01/19/18 23:42 98.4 82 20 131/73 (92) 97 01/19/18 20:48 98.8 90 20 114/61 (78) 97 01/19/18 19:37 95 Nasal Cannula 3.00 01/19/18 16:00 96.9 88 20 131/61 (84) 93 01/19/18 14:09 92 Nasal Cannula 3.00 01/19/18 12:00 96.9 86 20 134/70 (91) 95 I/O 01/19/18 01/19/18 01/19/18 01/20/18 01/20/18 01/20/18 07:00 15:00 23:00 07:00 15:00 23:00 Intake Total 120 ml 100 ml 850 ml Output Total 950 ml Balance 120 ml 100 ml -100 ml Intake Oral 120 ml 750 ml IV Total 100 ml 100 ml Output Urine Total 950 ml # Voids 2 (Summer Jesus MD R1) Result Diagram: 01/19/18 0645 01/19/18 0645 Objective Remarks O. CONSTITUTIONAL/GEN: Overweight male who briefly answers questions, has a breathy voice. EYES: EOMI. slight redness of the right conjunctiva. Minimal bilateral crusting noted. ENT: Mouth and pharynx normal. Nasal congestion is audible. LUNGS: Respiratory effort is normal. Lung sounds clear. CARDIOVASCULAR: RR without murmur or gallop. No significant edema. GI/ABD: soft without masses, without organomegaly. NEURO: No focal deficits. Gait is normal SKIN: color normal, no rashes noted. HEME/LYMPH: no bruising, petechia. MUSC: Extremities are normal in appearance. PSYCH/MENTAL STATUS: Alert, answers questions appropriately. (Summer Jesus MD R1) A/P Assessment and Plan Mr. Garcia is a 47-year-old patient of Dr. Jordan with PMH of schizoaffective disorder, sleep apnea, HTN who is admitted for pneumonia and STEVE. Upon presentation to the emergency department, patient was noted to have pulse ox of 88% on room air, which improved with supplemental oxygen. Placed on antibiotics , IV fluids, breathing treatments every 6 hours, and supplemental oxygen. Patient is not a reliable historian; however, Mom is usually at bedside and able to adequately answer questions. Discharge Planning Plan to discharge with home O2 and follow-up w/ PCP. Recommend referral to pulmonology. Discharge possible tomorrow, as patient likely is chronically hypoxic due to obesity hypoventilation syndrome. (Summer Jesus MD R1) Attending Attestation The exam, history, and the medical decision-making described in the above note were completed with the assistance of the resident physician. I reviewed and agree with the findings presented. I attest that I had a [id number] encounter with the patient on the same day, and personally performed and documented my assessment and findings in the medical record. On exam patient doing well but due to complicate social issues with his mental illness and parents as caregivers, and he is still requiring 3L oxygen -- would like to see echo prior to discharge and hold discharge for one more day. Parents and patient are agreeable to this at this time. (Mable Kee MD) Problem List: (1) Obesity hypoventilation syndrome ICD Codes: E66.2 - Morbid (severe) obesity with alveolar hypoventilation Status: Chronic Plan: On admission: leukocytosis of 16.6 with neutrophilia, poor chest x-ray, left lower lung field rales, will treat for likely bacterial pneumonia superimposed on viral URI CXR shows atelactasis, no infiltrates WBC with slight left shift, stable Flu negative, gram stain of sputum grows normal niki Hypoxia w/o O2 low 80s Likely secondary to obesity hypoventilation syndrome exacerbated by URI Improving - Supplemental oxygen to maintain oxygen saturation over 92%. Will likely require home O2 - Duonebs Q6H scheduled while awake - Guaifenesin-codeine 10 mL p.o. every 4 hours as needed for cough - Keep head of bed elevated to 30 degrees for optimal airway breathing - PFTs to evaluate for underlying lung disease, rec outpatient - ABG shows chronic respiratory acidosis w/metabolic alkalosis - Order BNP, CXR, and echo to assess for possible CHF or underlying cardiac cause (2) Pneumonia ICD Codes: J18.9 - Pneumonia, unspecified organism Status: Acute Plan: Stable slightly elevated WBC count with left shift Afebrile, lung exam clear -s/p Azithromycin 500 mg IV x1 in the ED. PO Azithromycin 250 mg daily (day #3 today) for 5 days total. -Ceftriaxone 2 g IV every 24 hours Day #4 (3) Conjunctivitis ICD Codes: H10.9 - Unspecified conjunctivitis Status: Acute Plan: Appears to be improved. - Continue erythromycin ointment (day #2) to right eye every 6 hours for 5-7 days (4) Sleep apnea ICD Codes: G47.30 - Sleep apnea Status: Chronic Plan: -CPAP to sleep at night (5) Schizoaffective disorder, unspecified ICD Codes: F25.9 - Schizoaffective disorder, unspecified Status: Chronic Plan: -Continue lithium 300 mg p.o. 3 times daily -Continue thiothixene 20 mg 3 times a day -Continue benztropine 2 mg p.o. 3 times daily (6) Hypertension ICD Codes: I10 - Essential (primary) hypertension Status: Chronic Plan: -Continue lisinopril 20 mg p.o. daily -Continue hydrochlorothiazide 12.5 mg p.o. daily (7) GERD Status: Chronic Plan: -Continue pantoprazole 20 mg p.o. daily - At home, patient takes omeprazole 20 mg p.o. in the morning but this medication is held (8) Hypertriglyceridemia ICD Codes: E78.1 - Hypertriglyceridemia Status: Chronic Plan: -Continue fenofibrate 130 mg p.o. daily (9) Anxiety ICD Codes: F41.9 - Anxiety Status: Chronic Plan: -Continue Xanax 0.25 mg p.o. daily as needed for anxiety (10) Hyperprolactinemia ICD Codes: E22.1 - Hyperprolactinemia Status: Chronic Plan: -Continue cabergoline 0.5 mg every Tuesday (11) Nutrition, metabolism, and development symptoms ICD Codes: R63.8 - Other symptoms and signs concerning food and fluid intake Status: Chronic Plan: Fluids: PO Electrolytes: Monitor and replete as necessary Nutrition: Regular basic diet DCT prophy: Lovenox daily (Summer Jesus MD R1) Problem Qualifiers (1) Conjunctivitis: Qualified Codes: H10.32 - Unspecified acute conjunctivitis, left eye Summer Jesus MD R1 Jan 20, 2018 08:25 Mable Kee MD Jan 20, 2018 11:53
[2018-01-20] MEDS: SODIUM CHLORIDE 0.9% FLUSH 10 ML FLUSH IV FLUSH SCH ×2 (08:26→20:43)
[2018-01-20] MEDS: CYANOCOBALAMIN 1,000 MCG TAB PO SCH (08:26)
[2018-01-20] MEDS: ACETAMINOPHEN 325 MG TAB PO PRN (08:32)
[2018-01-20 10:15] LABS: AUTOMATED NEUTROPHIL # 12.3 TH/MM3 (1.8-7.7); BASOPHIL # 0.1 TH/MM3 (0-0.2); BASOPHIL % 0.6 % (0.0-2.0); EOSINOPHIL # 0.4 TH/MM3 (0-0.4); EOSINOPHIL % 2.8 % (0.0-4.0); HEMATOCRIT 45.3 % (39.0-51.0); HEMOGLOBIN 14.5 GM/DL (13.0-17.0); LYMPH % 9.9 % (9.0-44.0); LYMPHOCYTE # 1.5 TH/MM3 (1.0-4.8); MEAN CELL VOLUME 83.8 FL (80.0-100.0); MEAN CORPUSCULAR HEMOGLOBIN 26.8 PG (27.0-34.0); MEAN CORPUSCULAR HGB CONC 32.1 % (32.0-36.0); MEAN PLATELET VOLUME 8.6 FL (7.0-11.0); MONO % 4.7 % (0.0-8.0); MONOCYTE # 0.7 TH/MM3 (0-0.9); PLATELET COUNT 355 TH/MM3 (150-450); RED BLOOD COUNT 5.41 MIL/MM3 (4.50-5.90)
[2018-01-20 10:47] LABS: BANDS 4 % (0-6); LYMPHOCYTES 7 % (9-44); METAMYELOCYTES 2 % (0-1); MONOCYTES 5 % (0-8); MYELOCYTES 3 % (0-0); NEUTROPHIL # MANUAL DIFF 12.9 TH/MM3 (1.8-7.7); POLYS (SEG NEUTROPHILS) 77 % (16-70)
[2018-01-20 10:49] LABS: STOMATOCYTES 1+ (NORMAL)
--- NOTE | 2018-01-20 12:57 | RADRPT ---
EXAM DATE/TIME: 01/20/2018 12:38 [facility] COMPARISON: CHEST PA & LAT, January 17, 2018, 18:22. INDICATIONS : Short of breath. MEDICAL HISTORY : sleep apnea. SURGICAL HISTORY : None. ENCOUNTER: Initial ACUITY: 3 days PAIN SCORE: 0/10 LOCATION: Bilateral chest FINDINGS: PA and lateral views of the chest demonstrate the lungs to be symmetrically aerated without evidence of mass, infiltrate or effusion. Peribronchial thickening present. The cardiomediastinal contours are unremarkable. Osseous structures are intact. CONCLUSION: 1. Peribronchial thickening. No focal consolidation or effusion. Rock Willis MD on January 20, 2018 at 12:51 Board Certified Radiologist. This report was verified electronically.
[2018-01-20] MEDS: CABERGOLINE 0.5 MG PO SCH (14:00)
[2018-01-20] MEDS: AZITHROMYCIN 250 MG TAB PO SCH (16:04)
[2018-01-20] MEDS: cefTRIAXone INJ 2,000 MG in SODIUM CHLORIDE 0.9% INJ 100 ML IV SCH (16:04)
[2018-01-20] MEDS: ALPRAZolam 0.25 MG TAB PO PRN (18:06)
[2018-01-20] MEDS: ENOXAPARIN SODIUM 40 MG/0.4 ML SYRINGE SQ SCH (20:43)
[2018-01-21] VITALS: BP 156/84; PULSE 82; RESP 22; TEMP 98; O2SAT 94
[2018-01-21 04:00] VITALS: BP 134/78; PULSE 95; RESP 22; TEMP 98.2; O2SAT 94
[2018-01-21] MEDS: ERYTHROMYCIN 0.5% OPTH OINT 3.5 GM TUBO RIGHT EYE SCH ×3 (06:14→12:43)
[2018-01-21 07:16] VITALS: BP 140/77; PULSE 89; RESP 22; TEMP 97.4; O2SAT 93
[2018-01-21] MEDS: RESP: ALBUTEROL 2.5 MG/IPRATROPIUM 0.5 MG NEB (SCH) NEB ×2 (08:00→13:22)
[2018-01-21] MEDS: THIOTHIXENE 10 MG CAP PO SCH ×2 (08:31→12:42)
[2018-01-21] MEDS: BENZTROPINE MESYLATE 1 MG TAB PO SCH ×2 (08:31→12:42)
[2018-01-21] MEDS: FENOFIBRATE 145 MG TAB PO SCH (08:31)
[2018-01-21] MEDS: LORATADINE 10 MG TAB PO SCH (08:31)
[2018-01-21] MEDS: LITHIUM CARBONATE 300 MG TAB PO SCH ×2 (08:31→12:43)
[2018-01-21] MEDS: CYANOCOBALAMIN 1,000 MCG TAB PO SCH (08:32)
[2018-01-21] MEDS: HYDROCHLOROTHIAZIDE 12.5 MG CAP PO SCH (08:32)
[2018-01-21] MEDS: SODIUM CHLORIDE 0.9% FLUSH 10 ML FLUSH IV FLUSH SCH (08:32)
[2018-01-21] MEDS: LISINOPRIL 20 MG TAB PO SCH (08:32)
[2018-01-21] MEDS ORDERED: PANTOPRAZOLE SOD 20 MG DELAYED RELEASE TAB PO SCH (09:00)
[2018-01-21 09:21] VITALS: O2SAT 98
[2018-01-21 11:37] VITALS: BP_SYST 129; BP_DIAS 56; BP_DIAS 76; PULSE 93; RESP 18; TEMP 97; O2SAT 93
[2018-01-21 11:41] LABS: AUTOMATED NEUTROPHIL # 11.1 TH/MM3 (1.8-7.7); BASOPHIL # 0.1 TH/MM3 (0-0.2); BASOPHIL % 0.7 % (0.0-2.0); EOSINOPHIL # 0.4 TH/MM3 (0-0.4); EOSINOPHIL % 3.3 % (0.0-4.0); HEMATOCRIT 46.2 % (39.0-51.0); HEMOGLOBIN 14.5 GM/DL (13.0-17.0); LYMPHOCYTE # 1.4 TH/MM3 (1.0-4.8); MEAN CELL VOLUME 84.8 FL (80.0-100.0); MEAN CORPUSCULAR HEMOGLOBIN 26.6 PG (27.0-34.0); MEAN CORPUSCULAR HGB CONC 31.4 % (32.0-36.0); MONO % 4.5 % (0.0-8.0); MONOCYTE # 0.6 TH/MM3 (0-0.9); NEUT % 81.5 % (16.0-70.0); PLATELET COUNT 296 TH/MM3 (150-450); RED BLOOD COUNT 5.44 MIL/MM3 (4.50-5.90); RED CELL DISTRIBUTION WIDTH 15.2 % (11.6-17.2); WHITE BLOOD COUNT 13.6 TH/MM3 (4.0-11.0)
[2018-01-21 12:19] LABS: BANDS 13 % (0-6); LYMPHOCYTES 9 % (9-44); METAMYELOCYTES 2 % (0-1); MONOCYTES 2 % (0-8); MYELOCYTES 10 % (0-0); NEUTROPHIL # MANUAL DIFF 12.1 TH/MM3 (1.8-7.7); POLYS (SEG NEUTROPHILS) 63 % (16-70); PROMYELOCYTES 1 % (0-0); TOXIC GRANULATION 1+ (NORMAL)
[2018-01-21] MEDS ORDERED: LEVO750T3 PO (12:38)
--- NOTE | 2018-01-21 12:42 | HHI.FPPN ---
Subjective Remarks Patient is doing well today. No problems overnight. Satted above 92% on 3 L nasal cannula O2. Patient has home oxygen in the room, is ready to go today. Complains of tongue pain in the room today, is very adamant about pain and continues to repeat it. On further questioning, this revealed that patient bites his tongue while he eats. (Summer Jesus MD R1) Objective Vitals Vital Signs Date Time Temp Pulse Resp B/P (MAP) Pulse Ox O2 Delivery O2 Flow Rate FiO2 01/21/18 11:37 97.0 93 18 129/76 (93) 93 01/21/18 09:21 98 Nasal Cannula 3.00 01/21/18 07:16 97.4 89 22 140/77 (98) 93 01/21/18 04:00 98.2 95 22 134/78 (96) 94 01/21/18 00:00 98.0 82 22 156/84 (108) 94 01/20/18 21:58 98.1 96 22 160/71 (100) 94 01/20/18 20:30 98.2 100 18 144/72 (96) 90 01/20/18 19:29 93 Nasal Cannula 3.00 01/20/18 15:54 98.2 72 20 160/74 (102) 90 I/O 01/20/18 01/20/18 01/20/18 01/21/18 01/21/18 01/21/18 07:00 15:00 23:00 07:00 15:00 23:00 Intake Total 480 ml Balance 480 ml Intake Oral 480 ml # Voids 2 # Bowel Movements 0 (Summer Jesus MD R1) Result Diagram: 01/21/18 1020 01/19/18 0645 Objective Remarks O. CONSTITUTIONAL/GEN: Overweight male who briefly answers questions, has a breathy voice. EYES: EOMI. ENT: Mouth and pharynx normal. Nasal congestion is audible. LUNGS: Respiratory effort is normal. Lung sounds clear. CARDIOVASCULAR: RR without murmur or gallop. No significant edema. GI/ABD: soft without masses, without organomegaly. NEURO: No focal deficits. Gait is normal SKIN: color normal, no rashes noted. HEME/LYMPH: no bruising, petechia. MUSC: Extremities are normal in appearance. PSYCH/MENTAL STATUS: Alert, answers questions appropriately. (Summer Jesus MD R1) A/P Assessment and Plan Mr. Garcia is a 47-year-old patient of Dr. Jordan with PMH of schizoaffective disorder, sleep apnea, HTN who is admitted for pneumonia and STEVE. Upon presentation to the emergency department, patient was noted to have pulse ox of 88% on room air, which improved with supplemental oxygen. Placed on antibiotics , IV fluids, breathing treatments every 6 hours, and supplemental oxygen. Patient is not a reliable historian; however, Mom is usually at bedside and able to adequately answer questions. Discharge Planning Plan to discharge with home O2 and follow-up w/ PCP. Recommend referral to pulmonology. Discharge possible tomorrow, as patient likely is chronically hypoxic due to obesity hypoventilation syndrome. (Summer Jesus MD R1) Attending Attestation Patient seen and examined. On pulmonary exam today he has no wheezing and no prolongation of his expiratory phase. Case reviewed and discussed with the resident team. Agree with plan of care as discussed with me and documented in the resident note. (Ramirez Matthew MD) Problem List: (1) Obesity hypoventilation syndrome ICD Codes: E66.2 - Morbid (severe) obesity with alveolar hypoventilation Status: Chronic Plan: On admission: leukocytosis of 16.6 with neutrophilia, poor chest x-ray, left lower lung field rales, will treat for likely bacterial pneumonia superimposed on viral URI CXR shows atelactasis, no infiltrates. Flu negative, gram stain of sputum grows normal niki. Chest x-ray performed yesterday shows peribronchial thickening. Unlikely underlying CHF, BMP within normal limits WBC with slight left shift on admission. WBC count today is down to 13.6 from 16.6 on admission Hypoxia w/o O2 low 80s PFTs seem to indicate restrictive lung condition (reduced vital capacity, normal FEV1/FEVC), ABG shows chronic respiratory acidosis with metabolic compensation Likely secondary to obesity hypoventilation syndrome exacerbated by URI Improving. - Supplemental oxygen to maintain oxygen saturation over 92% via nasal cannula - Guaifenesin-codeine 10 mL p.o. every 4 hours as needed for cough - Keep head of bed elevated to 30 degrees for optimal airway breathing - rec further outpatient management (2) Pneumonia ICD Codes: J18.9 - Pneumonia, unspecified organism Status: Acute Plan: Improved Afebrile, lung exam clear Patient has completed day 5 of azithromycin today. S/p 5 days of ceftriaxone 2 g IV every 24 hours.Will provide for 750 mg levofloxacin for 5 more days (for a total course of 10 days) (3) Conjunctivitis ICD Codes: H10.9 - Unspecified conjunctivitis Status: Acute Plan: Improved - Continue erythromycin ointment (day #3) to right eye every 6 hours for a total course of 7 days (4) Sleep apnea ICD Codes: G47.30 - Sleep apnea Status: Chronic Plan: -CPAP to sleep at night (5) Schizoaffective disorder, unspecified ICD Codes: F25.9 - Schizoaffective disorder, unspecified Status: Chronic Plan: -Continue lithium 300 mg p.o. 3 times daily -Continue thiothixene 20 mg 3 times a day -Continue benztropine 2 mg p.o. 3 times daily (6) Hypertension ICD Codes: I10 - Essential (primary) hypertension Status: Chronic Plan: -Continue lisinopril 20 mg p.o. daily -Continue hydrochlorothiazide 12.5 mg p.o. daily (7) GERD Status: Chronic Plan: -Continue pantoprazole 20 mg p.o. daily - At home, patient takes omeprazole 20 mg p.o. in the morning but this medication is held (8) Hypertriglyceridemia ICD Codes: E78.1 - Hypertriglyceridemia Status: Chronic Plan: -Continue fenofibrate 130 mg p.o. daily (9) Anxiety ICD Codes: F41.9 - Anxiety Status: Chronic Plan: -Continue Xanax 0.25 mg p.o. daily as needed for anxiety (10) Hyperprolactinemia ICD Codes: E22.1 - Hyperprolactinemia Status: Chronic Plan: -Continue cabergoline 0.5 mg every Tuesday (11) Nutrition, metabolism, and development symptoms ICD Codes: R63.8 - Other symptoms and signs concerning food and fluid intake Status: Chronic Plan: Fluids: PO Electrolytes: Not indicated Nutrition: Regular basic diet DVT prophy: Lovenox daily (Summer Jesus MD R1) Problem Qualifiers (1) Conjunctivitis: Qualified Codes: H10.32 - Unspecified acute conjunctivitis, left eye Summer Jesus MD R1 Jan 21, 2018 12:42 Ramirez Matthew MD Jan 22, 2018 11:19
[2018-01-21] MEDS ORDERED: ERYTOIN10 RIGHT EYE (13:52)
--- NOTE | 2018-01-22 08:05 | HHI.DS ---
Discharge Summary Admission Date Jan 19, 2018 at 09:42 Admitting Diagnosis (1) Obesity hypoventilation syndrome Plan: On admission: leukocytosis of 16.6 with neutrophilia, poor chest x-ray, left lower lung field rales, will treat for likely bacterial pneumonia superimposed on viral URI CXR shows atelactasis, no infiltrates. Flu negative, gram stain of sputum grows normal niki. Chest x-ray performed yesterday shows peribronchial thickening. Unlikely underlying CHF, BMP within normal limits WBC with slight left shift on admission. WBC count today is down to 13.6 from 16.6 on admission Hypoxia w/o O2 low 80s PFTs seem to indicate restrictive lung condition (reduced vital capacity, normal FEV1/FEVC), ABG shows chronic respiratory acidosis with metabolic compensation Likely secondary to obesity hypoventilation syndrome exacerbated by URI Improving. - Supplemental oxygen to maintain oxygen saturation over 92% via nasal cannula - Guaifenesin-codeine 10 mL p.o. every 4 hours as needed for cough - Keep head of bed elevated to 30 degrees for optimal airway breathing - rec further outpatient management ICD Codes: E66.2 - Morbid (severe) obesity with alveolar hypoventilation Status: Chronic (2) Pneumonia Plan: Improved Afebrile, lung exam clear Patient has completed day 5 of azithromycin today. S/p 5 days of ceftriaxone 2 g IV every 24 hours.Will provide for 750 mg levofloxacin for 5 more days (for a total course of 10 days) ICD Codes: J18.9 - Pneumonia, unspecified organism Status: Acute (3) Conjunctivitis Plan: Improved - Continue erythromycin ointment (day #3) to right eye every 6 hours for a total course of 7 days ICD Codes: H10.9 - Unspecified conjunctivitis Status: Acute (4) Sleep apnea Plan: -CPAP to sleep at night ICD Codes: G47.30 - Sleep apnea Status: Chronic (5) Schizoaffective disorder, unspecified Plan: -Continue lithium 300 mg p.o. 3 times daily -Continue thiothixene 20 mg 3 times a day -Continue benztropine 2 mg p.o. 3 times daily ICD Codes: F25.9 - Schizoaffective disorder, unspecified Status: Chronic (6) Hypertension Plan: -Continue lisinopril 20 mg p.o. daily -Continue hydrochlorothiazide 12.5 mg p.o. daily ICD Codes: I10 - Essential (primary) hypertension Status: Chronic (7) GERD Plan: -Continue pantoprazole 20 mg p.o. daily - At home, patient takes omeprazole 20 mg p.o. in the morning but this medication is held Status: Chronic (8) Hypertriglyceridemia Plan: -Continue fenofibrate 130 mg p.o. daily ICD Codes: E78.1 - Hypertriglyceridemia Status: Chronic (9) Anxiety Plan: -Continue Xanax 0.25 mg p.o. daily as needed for anxiety ICD Codes: F41.9 - Anxiety Status: Chronic (10) Hyperprolactinemia Plan: -Continue cabergoline 0.5 mg every Tuesday ICD Codes: E22.1 - Hyperprolactinemia Status: Chronic (11) Nutrition, metabolism, and development symptoms Plan: Fluids: PO Electrolytes: Not indicated Nutrition: Regular basic diet DVT prophy: Lovenox daily ICD Codes: R63.8 - Other symptoms and signs concerning food and fluid intake Status: Chronic Brief History Mr. Garcia is a 47-year-old patient of Dr. Jordan with PMH of schizoaffective disorder, sleep apnea, HTN who presents for evaluation of cough and fever. Upon presentation to the emergency department, patient was noted to have pulse ox of 88% on room air, which improved with supplemental oxygen. Patient is accompanied by mother who supplemented the history. Patient reports hat he has been having a cough productive of mucus which started last Tuesday. This worsened Tuesday night with cough more productive of thick yellow -green sputum; he has since had T of 101F at night associated with breaking into sweating at night, seems cyclical. No foreign travel. He denied any prolonged exposure to healthcare facilities. Patient has not been having associated head/sinus pressure but has had sore throat. He denies any COPD, asthma, or underlying lung disease. Sick contact of dad who recently was sick with similar symptoms. Patient was seen by Dr. Murphy yesterday on 01/16/18 who prescribed Bromfed and Azithromycin. Patient denied any improvement after taking these medications. Was gasping for air upon presentation to ED. Patient also has had bilateral eye discharge for the past 2 days. His mother reports that his eyes are crusted shut in the morning. Patient currently denies chest pain, shortness of breath. CBC/BMP: 01/21/18 1020 01/19/18 0645 Significant Findings Laboratory Tests Test 01/19/18 13:38 01/20/18 10:10 01/20/18 20:50 01/21/18 10:20 Blood Gas HCO3 34 mmol/L (22-26) Blood Gas Base Excess 8.9 mmol/L (-2-2) Blood Gas Oxygen Saturation 88 % (90-100) Arterial Blood Partial Pressure CO2 54 mmHg (38-42) Arterial Blood Partial Pressure O2 58 mmHg (61-120) White Blood Count 15.0 TH/MM3 (4.0-11.0) 13.6 TH/MM3 (4.0-11.0) Mean Corpuscular Hemoglobin 26.8 PG (27.0-34.0) 26.6 PG (27.0-34.0) Neutrophils (%) (Auto) 82.0 % (16.0-70.0) 81.5 % (16.0-70.0) Neutrophils # (Auto) 12.3 TH/MM3 (1.8-7.7) 11.1 TH/MM3 (1.8-7.7) Neutrophils % (Manual) 77 % (16-70) Lymphocytes % 7 % (9-44) Neutrophils # (Manual) 12.9 TH/MM3 (1.8-7.7) 12.1 TH/MM3 (1.8-7.7) Metamyelocytes 2 % (0-1) 2 % (0-1) Myelocytes 3 % (0-0) 10 % (0-0) Stomatocytes 1+ (NORMAL) D-Dimer Quantitative (PE/DVT) 0.60 MG/L FEU (0.00-0.50) Mean Corpuscular Hemoglobin Concent 31.4 % (32.0-36.0) Band Neutrophils % 13 % (0-6) Promyelocytes 1 % (0-0) Toxic Granulation 1+ (NORMAL) PE at Discharge O. CONSTITUTIONAL/GEN: Overweight male who briefly answers questions, has a breathy voice. EYES: EOMI. ENT: Mouth and pharynx normal. Nasal congestion is audible. LUNGS: Respiratory effort is normal. Lung sounds clear. CARDIOVASCULAR: RR without murmur or gallop. No significant edema. GI/ABD: soft without masses, without organomegaly. NEURO: No focal deficits. Gait is normal SKIN: color normal, no rashes noted. HEME/LYMPH: no bruising, petechia. MUSC: Extremities are normal in appearance. PSYCH/MENTAL STATUS: Alert, answers questions appropriately. Pt Condition on Discharge: Stable Discharge Disposition: Discharge Home Discharge Instructions DIET: Follow Instructions for: As Tolerated, No Restrictions Activities you can perform: Regular-No Restrictions Summer Jesus MD R1 Jan 22, 2018 08:05
--- NOTE | 2018-01-24 10:34 | RSPPFT ---
DATE OF PROCEDURE: 01/20/18 COMMENTS: Spirometry shows FVC of 3.0 at 79% of predicted, FEV1 of 2.3 at 73%, FEV1/FVC ratio is decreased. Flow is decreased at FEF 25, FEF 50, FEF 75 and FEF 25-75. There is no response after bronchodilator. Flow volume loop indicates terminal airways obstruction. IMPRESSION: 1. Mild small airways obstructive lung disease. 2. No response after bronchodilator treatment.
== END 2018-01-21 14:22 | disposition home or self-care (01) | DRG 194 ==
LOC: NEPE 13:09 → NEDA 17:10 → NEPGCP 18:55 → OBSVTOIN 01-19 09:42 → N06B 01-20 21:38
PROVIDERS: ADMIT Family Medicine; ATTEND Family Medicine
DX: J15.9 Unspecified bacterial pneumonia (principal); E66.2 Morbid (severe) obesity with alveolar hypoventilation; N17.9 Acute kidney failure, unspecified; E22.1 Hyperprolactinemia; J06.9 Acute upper respiratory infection, unspecified; F25.9 Schizoaffective disorder, unspecified; E78.1 Pure hyperglyceridemia; E86.0 Dehydration; F31.9 Bipolar disorder, unspecified; F41.9 Anxiety disorder, unspecified; H10.32 Unspecified acute conjunctivitis, left eye; I10 Essential (primary) hypertension; K14.6 Glossodynia; K21.9 Gastro-esophageal reflux disease without esophagitis; R09.02 Hypoxemia; Z91.5 Personal history of self-harm; Z79.899 Other long term (current) drug therapy
CPT/HCPCS: 36600; 71045; 71046; 80048; 80053; 81001; 82550; 82552; 82805; 83605; 83735; 83880; 84100; 84484; 85007; 85025; 85027; 85379; 85610; 85730; 87040; 87070; 87086; 87205; 87449; 87804; 93005; 94618; 94640; 94664; J0456; J0696; J1650; J7030; J7050